=== PATIENT | female | born 1975 | race Caucasian/White ===

== ENCOUNTER 2017-01-09 23:13 | Emergency (ER) | payer BC ==
[2017-01-09] MEDS ORDERED: diphenhydrAMINE 50 MG/ML 1 ML VIAL IVP STA (23:47)
[2017-01-09] MEDS ORDERED: SODIUM CHLORIDE 0.9% 1,000 ML IV STA (23:47)
[2017-01-09] MEDS ORDERED: METOCLOPRAMIDE 5 MG/ML 2 ML VIAL IVP STA (23:47)
--- NOTE | 2017-01-09 23:49 | ED ---
General Adult HPI - General Source: patient, RN notes reviewed Mode of arrival: ambulatory Limitations: no limitations <Bruna Alarcon - Last Filed: 01/10/17 01:30> <Evert Pinzon - Last Filed: 01/10/17 02:04> - General Chief complaint: GI Bleed Stated complaint: migraine w/vomiting Time Seen by Provider: 01/09/17 23:22 - History of Present Illness Initial comments: 41-year-old female presents to the emergency department with a chief nausea vomiting and migraine. Patient states she does have a history of migraines she gets migraines monthly with her cycle. Patient states she got her migraine today and it seemed to worsen. She does not have nausea and she was vomiting today. Patient states she vomited about 20 times around the last few vomits she thought that she saw blood in the vomit. She states it was a dark brown type as well as bright red blood. Patient denies any lightheadedness or dizziness. Patient states that she hasn't had any abdominal pain with this. Patient states since she's been here she has not had any vomiting. The concern was however that they didn't see the blood Migraines so they thought that she should be seen.Patient denies any recent fever, chills, shortness of breath, chest pain, back pain, abdominal pain, numbness or tingling, dysuria or hematuria, constipation or diarrhea, visual changes, or any other current symptoms. (Bruna Alarcon) - Related Data Home Medications Medication Instructions Recorded Confirmed Multivitamins, Thera [Multivitamin] 1 tab PO DAILY 03/11/16 01/09/17 Sertraline [Zoloft] 150 mg PO HS 03/11/16 01/09/17 Cholecalciferol [Vitamin D3] 1,000 unit PO DAILY 01/09/17 01/09/17 Thyroid,Pork [[place] Thyroid] 60 mg PO DAILY 01/09/17 01/09/17 buPROPion [Wellbutrin] 75 mg PO DAILY 01/09/17 01/09/17 Previous Rx's Medication Instructions Recorded Famotidine [Pepcid] 20 mg PO BID #10 tablet 01/10/17 Allergies Allergy/AdvReac Type Severity Reaction Status Date / Time Penicillins AdvReac Rash/Hives Verified 01/09/17 23:43 Sulfa (Sulfonamide AdvReac Rash/Hives Verified 01/09/17 23:43 Antibiotics) Review of Systems ROS Other: All systems not noted in ROS Statement are negative. <Bruna Alarcon - Last Filed: 01/10/17 01:30> ROS Other: All systems not noted in ROS Statement are negative. <Evert Pinzon - Last Filed: 01/10/17 02:04> ROS Statement: Those systems with pertinent positive or pertinent negative responses have been documented in the HPI. Past Medical History Past Medical History: Osteoarthritis (OA), Thyroid Disorder Additional Past Medical History / Comment(s): -induced hypertension. History of Any Multi-Drug Resistant Organisms: None Reported Past Surgical History: Adenoidectomy, Section, Tonsillectomy Additional Past Surgical History / Comment(s): sinus surgery. bunionectomy Past Anesthesia/Blood Transfusion Reactions: No Reported Reaction Past Psychological History: No Psychological Hx Reported Smoking Status: Never smoker Past Alcohol Use History: None Reported Past Drug Use History: None Reported - Past Family History Mother Family Medical History: Cancer <Bruna Alarcon - Last Filed: 01/10/17 01:30> General Exam Limitations: no limitations <Bruna Alarcon - Last Filed: 01/10/17 01:30> <Evert Pinzon - Last Filed: 01/10/17 02:04> - General Exam Comments Initial Comments: General: The patient is awake and alert, in no distress, and does not appear acutely ill. Eye: Pupils are equal, round and reactive to light, extra-ocular movements are intact; there is normal conjunctiva bilaterally. No signs of icterus. Ears, nose, mouth and throat: There are moist mucous membranes. Neck: The neck is supple, there is no tenderness. Cardiovascular: There is a regular rate and rhythm. No murmur, rub or gallop is appreciated. Respiratory: Lungs are clear to auscultation, respirations are non-labored, breath sounds are equal. No wheezes, stridor, rales, or rhonchi. Gastrointestinal: Soft, non-distended, non-tender abdomen without masses or organomegaly noted. There is no rebound or guarding present. No CVA tenderness. Bowel sounds are unremarkable. Back: There is no tenderness to palpation in the midline. There is no obvious deformity. No rashes noted. Musculoskeletal: Normal ROM, no tenderness, There is no pedal edema. There is no calf tenderness or swelling. Sensation intact. Pulses equal bilaterally 2+. Neurological: CN II-XII intact, There are no obvious motor or sensory deficits. Coordination appears grossly intact. Speech is normal. Skin: Skin is warm and dry and no rashes or lesions are noted. Psychiatric: Cooperative, appropriate mood & affect, normal judgment. (Bruna Alarcon) Medical Decision Making - Lab Data Result diagrams: 01/09/17 23:58 01/09/17 23:58 <Bruna Alarcon - Last Filed: 01/10/17 01:30> - Lab Data Result diagrams: 01/09/17 23:58 01/09/17 23:58 <Evert Pinzon - Last Filed: 01/10/17 02:04> - Medical Decision Making 41-year-old female presents emergency Department with a chief complaint of nausea vomiting and headache. At this time patient's vomiting has resolved. Occult was done however it was more most likely rectal bleeding associated with normal stool when observed. At this time we will discharge the patient home. We will start her on Pepcid for home. We did discuss close follow-up. We did discuss return parameters and all the patient's questions. They state Ubaldo they're in agreement plan. They will be discharged. (Bruna Alarcon) 41-year-old female presenting with significant nausea or vomiting. Follow was initially clear, progressed to brown with some blood streaking. History consistent with Shanon-Ford tear. Patient's exam is unremarkable. No epigastric tenderness, abdominal exam is benign. She is overall well- appearing. Vital signs are stable. Hemoglobin is stable. Patient is given anticipatory guidance and will return with worsening symptoms, the development of melena, or repeat vomiting with blood. She started on proton pump inhibitor. (Evert Pinzon) - Lab Data Lab Results 01/09/17 01/09/17 01/09/17 Range/Units 00:00 23:58 23:58 WBC 12.7 H (3.8-10.6) k/uL RBC 4.29 (3.80-5.40) m/uL Hgb 13.1 (11.4-16.0) gm/dL Hct 39.7 (34.0-46.0) % MCV 92.5 (80.0-100.0) fL MCH 30.5 (25.0-35.0) pg MCHC 33.0 (31.0-37.0) g/dL RDW 14.1 (11.5-15.5) % Plt Count 249 (150-450) k/uL Neutrophils % 79 % Lymphocytes % 15 % Monocytes % 3 % Eosinophils % 1 % Basophils % 0 % Neutrophils # 10.0 H (1.3-7.7) k/uL Lymphocytes # 1.9 (1.0-4.8) k/uL Monocytes # 0.4 (0-1.0) k/uL Eosinophils # 0.1 (0-0.7) k/uL Basophils # 0.1 (0-0.2) k/uL PT (9.0-12.0) sec INR (<1.2) APTT (22.0-30.0) sec Sodium 142 (137-145) mmol/L Potassium 4.1 (3.5-5.1) mmol/L Chloride 104 (98-107) mmol/L Carbon Dioxide 24 (22-30) mmol/L Anion Gap 14 mmol/L BUN 13 (7-17) mg/dL Creatinine 0.60 (0.52-1.04) mg/dL Est GFR (MDRD) Af Amer >60 (>60 ml/min/1.73 sqM) Est GFR (MDRD) Non-Af >60 (>60 ml/min/1.73 sqM) Glucose 115 H (74-99) mg/dL Calcium 9.5 (8.4-10.2) mg/dL Total Bilirubin 0.2 (0.2-1.3) mg/dL AST 17 (14-36) U/L ALT 37 (9-52) U/L Alkaline Phosphatase 113 (38-126) U/L Total Protein 7.1 (6.3-8.2) g/dL Albumin 4.3 (3.5-5.0) g/dL Amylase 32 (30-110) U/L Lipase 111 (23-300) U/L Stool Occult Blood (Negative) Blood Type O Positive Blood Type Recheck No Antibody Screen NEGATIVE Spec Expiration Date 01/12/2017 - 229901/09/17 01/10/17 Range/Units 23:58 01:00 WBC (3.8-10.6) k/uL RBC (3.80-5.40) m/uL Hgb (11.4-16.0) gm/dL Hct (34.0-46.0) % MCV (80.0-100.0) fL MCH (25.0-35.0) pg MCHC (31.0-37.0) g/dL RDW (11.5-15.5) % Plt Count (150-450) k/uL Neutrophils % % Lymphocytes % % Monocytes % % Eosinophils % % Basophils % % Neutrophils # (1.3-7.7) k/uL Lymphocytes # (1.0-4.8) k/uL Monocytes # (0-1.0) k/uL Eosinophils # (0-0.7) k/uL Basophils # (0-0.2) k/uL PT 9.7 (9.0-12.0) sec INR 0.9 (<1.2) APTT 25.6 (22.0-30.0) sec Sodium (137-145) mmol/L Potassium (3.5-5.1) mmol/L Chloride (98-107) mmol/L Carbon Dioxide (22-30) mmol/L Anion Gap mmol/L BUN (7-17) mg/dL Creatinine (0.52-1.04) mg/dL Est GFR (MDRD) Af Amer (>60 ml/min/1.73 sqM) Est GFR (MDRD) Non-Af (>60 ml/min/1.73 sqM) Glucose (74-99) mg/dL Calcium (8.4-10.2) mg/dL Total Bilirubin (0.2-1.3) mg/dL AST (14-36) U/L ALT (9-52) U/L Alkaline Phosphatase (38-126) U/L Total Protein (6.3-8.2) g/dL Albumin (3.5-5.0) g/dL Amylase (30-110) U/L Lipase (23-300) U/L Stool Occult Blood Positive H (Negative) Blood Type Blood Type Recheck Antibody Screen Spec Expiration Date Disposition Time of Disposition: 01:31 <Bruna Alarcon - Last Filed: 01/10/17 01:30> <Evert Pinzon - Last Filed: 01/10/17 02:04> Clinical Impression: Headache, Nausea & vomiting Disposition: HOME SELF-CARE Condition: Stable Instructions: Gastrointestinal Bleeding (ED), Acute Headache (ED) Additional Instructions: Please use medication as discussed. Please follow up with family doctor if symptoms have not improved over the next two days. Please return to the emergency room if your symptoms increase or worsen or for any other concerns. Prescriptions: Famotidine [Pepcid] 20 mg PO BID #10 tablet Referrals: Bre Carey MD [Primary Care Provider] - 1-2 days
[2017-01-10 00:10] LABS: Basophils # (A) 0.1 k/uL (0-0.2); Basophils % (A) 0 %; CH 30.9; CHCM 33.6; Eosinophils # (A) 0.1 k/uL (0-0.7); Eosinophils % (A) 1 %; HCT 39.7 % (34.0-46.0); HDW 2.61; HGB 13.1 gm/dL (11.4-16.0); Luc # (Auto) 0.12; Luc % (Auto) 1; Lymphocytes # (A) 1.9 k/uL (1.0-4.8); Lymphocytes % (A) 15 %; MCH 30.5 pg (25.0-35.0); MCV 92.5 fL (80.0-100.0); Mean Platelet Volume 7.6; Monocytes # (A) 0.4 k/uL (0-1.0); Monocytes % (A) 3 %; Neutrophils % (A) 79 %; RBC 4.29 m/uL (3.80-5.40); RDW 14.1 % (11.5-15.5); WBC 12.7 k/uL (3.8-10.6); WBC (Perox) 12.74
[2017-01-10 00:21] LABS: ALT 37 U/L (9-52); AST 17 U/L (14-36); Alkaline Phosphatase 113 U/L (38-126); Amylase 32 U/L (30-110); Anion Gap 14 mmol/L; Blood Urea Nitrogen 13 mg/dL (7-17); Calcium 9.5 mg/dL (8.4-10.2); Carbon Dioxide 24 mmol/L (22-30); Chloride 104 mmol/L (98-107); Glucose 115 mg/dL (74-99); Non-African American GFR(MDRD) >60 (>60 ml/min/1.73 sqM); Potassium 4.1 mmol/L (3.5-5.1); Sodium 142 mmol/L (137-145); Total Bilirubin 0.2 mg/dL (0.2-1.3); Total Protein 7.1 g/dL (6.3-8.2)
[2017-01-10 00:22] LABS: INR 0.9 (<1.2); Partial Thromboplastin Time 25.6 sec (22.0-30.0); Prothrombin Time 9.7 sec (9.0-12.0)
[2017-01-10] MEDS ORDERED: FAMOTIDINE 20 MG/2 ML VIAL IV STA (01:16)
[2017-01-10 01:46] VITALS: BP 112/56; PULSE 68; RESP 16; TEMP 97.5
== END 2017-01-10 02:01 | disposition home or self-care (01) ==
LOC: EC 23:13
DX: R11.2 Nausea with vomiting, unspecified (principal); R51 Headache; K92.2 Gastrointestinal hemorrhage, unspecified; E07.9 Disorder of thyroid, unspecified; M19.90 Unspecified osteoarthritis, unspecified site; Z79.899 Other long term (current) drug therapy; Z88.0 Allergy status to penicillin; Z88.2 Allergy status to sulfonamides
CPT/HCPCS: 36415 ×2; 86900; 86901; 80053; 82150; 83690; 85025; 85610; 85730; 86850; 82272; 96374; 96375 ×2; 96361; 99284; J1200; J2765

== ENCOUNTER → 2017-06-23 | Outpatient (CLI) | payer BC ==
--- NOTE | 2017-06-24 12:31 | MM ---
Reason for exam: screening (asymptomatic). Last mammogram was performed 1 year and 4 months ago. History: Patient had first child at age 37. Family history of breast cancer in maternal aunt at age 65. Took hormonal contraceptives beginning at age 16. Physical Findings: A clinical breast exam by your physician is recommended on an annual basis and results should be correlated with mammographic findings. MG Screening Mammo w CAD Bilateral CC and MLO view(s) were taken. Prior study comparison: February 24, 2016, bilateral MG screening mammo w CAD. September 24, 2013, bilateral MG diagnostic mammo w CAD [facility]. There are scattered fibroglandular densities. No suspicious abnormality. No significant changes when compared with prior studies. ASSESSMENT: Negative, BI-RAD 1 RECOMMENDATION: Routine screening mammogram of both breasts in 1 year.
== END | disposition home or self-care (01) ==
LOC: RADMAMWWP 09:32
PROVIDERS: ATTEND Obstetrics & Gynecology
DX: Z12.31 Encounter for screening mammogram for malignant neoplasm of breast (principal)
CPT/HCPCS: 77067

== ENCOUNTER → 2020-01-30 | Outpatient (CLI) | payer BC ==
--- NOTE | 2020-01-31 10:17 | MM ---
Reason for exam: screening (asymptomatic). Last mammogram was performed 1 year and 2 months ago. History: Patient had first child at age 37. Family history of breast cancer in maternal aunt at age 65. Took hormonal contraceptives beginning at age 16. Physical Findings: A clinical breast exam by your physician is recommended on an annual basis and results should be correlated with mammographic findings. MG Screening Mammo w CAD Bilateral CC and MLO view(s) were taken. Prior study comparison: November 22, 2018, bilateral MG screening mammo w CAD. June 23, 2017, bilateral MG screening mammo w CAD. There are scattered fibroglandular densities. There is no discrete abnormality. No significant changes when compared with prior studies. ASSESSMENT: Negative, BI-RAD 1 RECOMMENDATION: Routine screening mammogram of both breasts in 1 year.
== END | disposition home or self-care (01) ==
LOC: RADMAMWWP 15:31
PROVIDERS: ATTEND Obstetrics & Gynecology
DX: Z12.31 Encounter for screening mammogram for malignant neoplasm of breast (principal); Z80.3 Family history of malignant neoplasm of breast
CPT/HCPCS: 77067

== ENCOUNTER → 2021-01-22 | Outpatient (CLI) | payer BC ==
[2021-01-22 14:58] LABS: Basophils # (A) 0.04 X 10*3/uL (0.00-0.10); Basophils % (A) 0.4 %; Eosinophils # (A) 0.18 X 10*3/uL (0.04-0.35); HCT 41.5 % (37.2-46.3); HGB 12.7 g/dL (12.0-15.0); Lymphocytes # (A) 2.53 X 10*3/uL (0.90-5.00); Lymphocytes % (A) 27.4 %; MCH 28.8 pg (27.0-32.0); MCHC 30.6 g/dL (32.0-37.0); MCV 94.1 fL (80.0-97.0); Mean Platelet Volume 10.3 fL (9.5-12.2); Monocytes # (A) 0.36 X 10*3/uL (0.20-1.00); Monocytes % (A) 3.9 %; Neutrophils # (A) 6.09 X 10*3/uL (1.80-7.70); Platelet Count 265 X 10*3/uL (140-440); RBC 4.41 X 10*6/uL (4.10-5.20); RDW 13.4 % (11.5-14.5); WBC 9.23 X 10*3/uL (4.50-10.00)
[2021-01-22 18:44] LABS: Gliadin AB IgA, Deaminated NEGATIVE (NEGATIVE); Gliadin AB IgA, Unit 0.2 U/mL; Gliadin AB IgG, Deaminated NEGATIVE (NEGATIVE)
== END | disposition home or self-care (01) ==
LOC: LABWHC1 09:39
PROVIDERS: ATTEND Internal Medicine Gastroenterology
DX: R19.4 Change in bowel habit (principal)
CPT/HCPCS: 36415; 83516; 85025

== ENCOUNTER 2021-01-30 09:22 | Day surgery (SDC) | payer BC ==
[2021-01-28 15:57] VITALS: BMI 39.9
[~2021-01-30 09:22] MED LIST: LACTATED RINGERS 1,000 ML IV SCH
[2021-01-30 09:48] VITALS: TEMP 97.2
[2021-01-30] MEDS ORDERED: PROPOFOL 10 MG/ML 20 ML VIAL IV ONE (10:22)
--- NOTE | 2021-01-30 10:33 | P.PCN ---
Date of Procedure: 01/30/21 Implants: BRIEF HISTORY: Patient is a 45-year-old pleasant white female scheduled for an elective colonoscopy as a part of evaluation of change in bowel habits. PROCEDURE PERFORMED: Colonoscopy. PREOPERATIVE DIAGNOSIS: Change in bowel habits . IV sedation per Anesthesia. PROCEDURE: After informed consent was obtained, the patient, was brought into the endoscopy unit. IV sedation was administered by Anesthesia under continuous monitoring. Digital rectal examination was normal. Initially the Olympus CF-160 flexible video colonoscope was then inserted in the rectum, gradually advanced into the cecum without any difficulty. Careful examination was performed as the scope was gradually being withdrawn. Ileocecal valve and the appendiceal orifice were visualized and appeared normal. Prep was excellent. Mucosa of the cecum, ascending colon, transverse colon, descending colon, sigmoid colon, and rectum appeared normal. Her sigmoid diverticulosis. Retroflexion was performed in the rectum and no lesions were seen. The patient tolerated the procedure well. IMPRESSION: Normal-appearing colon from rectum to cecum no evidence of colorectal neoplasia . scattered sigmoid diverticulosis. RECOMMENDATIONS: Findings of this examination were discussed with the patient as well as a family. She was advised to have a repeat screening colonoscopy in 10 years. The meantime she will continue with a high-fiber diet and take fiber supplements as needed. .
[2021-01-30 10:58] VITALS: BP 122/78; PULSE 75; RESP 16
== END 2021-01-30 11:20 | disposition home or self-care (01) ==
LOC: ORWHC2ENDO 09:22
PROVIDERS: ATTEND Internal Medicine Gastroenterology
DX: K57.30 Diverticulosis of large intestine without perforation or abscess without bleeding (principal); Z88.0 Allergy status to penicillin; Z88.2 Allergy status to sulfonamides; F39 Unspecified mood [affective] disorder; E07.9 Disorder of thyroid, unspecified; Z79.890 Hormone replacement therapy; Z79.899 Other long term (current) drug therapy
CPT/HCPCS: 45378; 81025; J2704

== ENCOUNTER → 2021-03-17 | Outpatient (CLI) | payer BC ==
--- NOTE | 2021-03-18 10:33 | MM ---
Reason for exam: screening (asymptomatic). Last mammogram was performed 1 year and 2 months ago. History: Patient had first child at age 37. Family history of breast cancer in maternal aunt at age 65. Took hormonal contraceptives beginning at age 16. Physical Findings: A clinical breast exam by your physician is recommended on an annual basis and results should be correlated with mammographic findings. MG Screening Mammo w CAD Bilateral CC and MLO view(s) were taken. Prior study comparison: January 30, 2020, bilateral MG screening mammo w CAD. November 22, 2018, bilateral MG screening mammo w CAD. There are scattered fibroglandular densities. There is no discrete abnormality. No significant changes when compared with prior studies. ASSESSMENT: Negative, BI-RAD 1 RECOMMENDATION: Routine screening mammogram of both breasts in 1 year.
== END | disposition home or self-care (01) ==
LOC: RADMAMWWP 07:54
PROVIDERS: ATTEND Family Medicine
DX: Z12.31 Encounter for screening mammogram for malignant neoplasm of breast (principal); Z80.3 Family history of malignant neoplasm of breast
CPT/HCPCS: 77067

== ENCOUNTER 2022-08-23 16:45 | Emergency (ER) | payer OTHER, BC ==
[2022-08-23 16:55] VITALS: RESP 20; TEMP 98.1
[2022-08-23] MEDS ORDERED: LIDOCAINE 5% PATCH TOPICAL STA (17:10)
--- NOTE | 2022-08-23 17:15 | ED ---
Fall HPI - General Chief Complaint: Fall Stated Complaint: Fall/neck injury Time Seen by Provider: 08/23/22 17:01 Source: patient Mode of arrival: ambulatory - History of Present Illness Initial Comments: Patient is 47-year-old female who presents to the emergency department for neck and back pain. Patient states a child pulled a rolling chair while she was sitting on it causing patient to slide down the chair and fall onto her bottom in front of the chair. Patient landed in sitting position. Patient states her back and neck hit the chair during the fall causing pain. She did not hit her head or lose consciousness. She reports pain from the back of her neck down to her tailbone. She does not have any pain with neck movement. Patient has history of left sciatica reports no change in her symptoms. No saddle anesthesia. No leg weakness. No headache, nausea, vomiting - Related Data Home Medications Medication Instructions Recorded Confirmed Multivitamins, Thera [Multivitamin] 1 tab PO DAILY 03/11/16 01/28/21 Sertraline [Zoloft] 200 mg PO HS 03/11/16 01/30/21 Cholecalciferol [Vitamin D3] 250 mcg PO DAILY 01/09/17 01/28/21 buPROPion [Wellbutrin] 150 mg PO QAM 01/09/17 01/30/21 Pyridoxine [Vitamin B-6] 50 mg PO DAILY 01/28/21 01/28/21 Thyroid,Pork [Infrastructure Manager Thyroid] 60 mg PO QAM 01/28/21 01/30/21 methocarbamoL [Robaxin] 500 - 1,000 mg PO QID PRN 01/28/21 01/30/21 Previous Rx's Medication Instructions Recorded Cyclobenzaprine [Flexeril] 10 mg PO TID PRN #15 tab 08/23/22 Ibuprofen [Motrin] 800 mg PO Q8HR PRN #30 tab 08/23/22 Lidocaine 5% Patch [Lidoderm 5% 1 patch TOPICAL DAILY PRN #7 patch 08/23/22 Patch] Allergies Allergy/AdvReac Type Severity Reaction Status Date / Time Penicillins AdvReac Rash/Hives Verified 08/23/22 16:55 Sulfa (Sulfonamide AdvReac Rash/Hives Verified 08/23/22 16:55 Antibiotics) Review of Systems ROS Statement: Those systems with pertinent positive or pertinent negative responses have been documented in the HPI. ROS Other: All systems not noted in ROS Statement are negative. Past Medical History Past Medical History: Osteoarthritis (OA), Thyroid Disorder Additional Past Medical History / Comment(s): -induced hypertension. History of Any Multi-Drug Resistant Organisms: None Reported Past Surgical History: Adenoidectomy, Section, Tonsillectomy Additional Past Surgical History / Comment(s): sinus surgery. bunionectomy Past Anesthesia/Blood Transfusion Reactions: No Reported Reaction Past Psychological History: No Psychological Hx Reported Smoking Status: Never smoker Past Alcohol Use History: None Reported Past Drug Use History: None Reported - Past Family History Mother Family Medical History: Cancer General Exam Limitations: no limitations General appearance: alert, in no apparent distress Head exam: Present: atraumatic, normocephalic, normal inspection Respiratory exam: Present: normal lung sounds bilaterally. Absent: respiratory distress, wheezes, rales, rhonchi, stridor Cardiovascular Exam: Present: regular rate, normal rhythm, normal heart sounds. Absent: systolic murmur, diastolic murmur, rubs, gallop, clicks Back exam: Present: normal inspection, full ROM, paraspinal tenderness (cervical ), vertebral tenderness (thoracic mild ). Absent: muscle spasm Neurological exam: Present: alert, oriented X3, CN II-XII intact Psychiatric exam: Present: normal affect, normal mood Skin exam: Present: warm, dry, intact, normal color. Absent: rash Course Vital Signs 08/23/22 08/23/22 16:51 18:39 Temperature 98.1 F Pulse Rate 86 78 Respiratory 20 Rate Blood Pressure 148/86 118/79 O2 Sat by Pulse 98 99 Oximetry Medical Decision Making - Medical Decision Making Was pt. sent in by a medical professional or institution (, PA, HAUL TRUCK DRIVER, urgent care, hospital, or shelter...) When possible be specific @ -[No] Did you speak to anyone other than the patient for history (EMS, parent, family, police, friend...)? What history was obtained from this source @ -[No] Did you review nursing and triage notes (agree or disagree)? Why? @ -[I reviewed and agree with nursing and triage notes] Were old charts reviewed (outside hosp., previous admission, EMS record, old EKG, old radiological studies, urgent care reports/EKG's, shelter records)? Report findings @ -[No old charts were reviewed] Differential Diagnosis (chest pain, altered mental status, abdominal pain women, abdominal pain men, vaginal bleeding, weakness, fever, dyspnea, syncope, headache, dizziness, GI bleed, back pain, seizure, CVA, palpatations, mental health)? @ -Differential Back Pain: Strain, zoster, cauda equina syndrome, epidural abscess, vertebral osteomyelitis, discitis, fracture, subluxation, disc herniation, DJD, spinal stenosis, dissection, AAA, pancreatitis, peptic ulcer disease, pyelonephritis, kidney stone, this is not meant to be an all-inclusive list. EKG interpreted by me (3pts min.). @ -[As above] X-rays interpreted by me (1pt min.). @ -Yes, cervical, thoracic, lumbosacral x-rays negative for acute process. CT interpreted by me (1pt min.). @ -[None done] U/S interpreted by me (1pt. min.). @ -[None done] What testing was considered but not performed or refused? (CT, X-rays, U/S, labs)? Why? @ -[None] What meds were considered but not given or refused? Why? @ -[None] Did you discuss the management of the patient with other professionals (professionals i.e. , PA, HAUL TRUCK DRIVER, lab, RT, psych nurse, social sciences lecturer, career development counselor, teacher, conservation enforcement officer, pillowcase maker)? Give summary @ -[No] Was smoking cessation discussed for >3mins.? @ -[No] Was critical care preformed (if so, how long)? @ -[No] Were there social determinants of health that impacted care today? How? (Homelessness, low income, unemployed, alcoholism, drug addiction, transportation, low edu. Level, literacy, decrease access to med. care, residential, rehab)? @ -[No] Was there de-escalation of care discussed even if they declined (Discuss DNR or withdrawal of care, Hospice)? DNR status @ -[No] What co-morbidities impacted this encounter? (DM, HTN, Smoking, COPD, CAD, Cancer, CVA, ARF, Chemo, Hep., AIDS, mental health diagnosis, sleep apnea, morbid obesity)? @ -[None] Was patient admitted / discharged? Hospital course, mention meds given and route, prescriptions, significant lab abnormalities, going to OR and other pertinent info. @ -Patient presenting with back pain after fall. Patient well-appearing she has mild pain. X-ray negative for acute process. No symptoms or signs of cauda equina. Patient treated in the emergency department with improvement. She'll be discharged with symptomatic management. Undiagnosed new problem with uncertain prognosis? @ -[No] Drug Therapy requiring intensive monitoring for toxicity (Heparin, Nitro, Insulin, Cardizem)? @ -[No] Were any procedures done? @ -[No] Diagnosis/symptom? @ -Fall, back pain, neck pain Acute, or Chronic, or Acute on Chronic? @ -Acute Uncomplicated (without systemic symptoms) or Complicated (systemic symptoms)? @ -Uncomplicated Side effects of treatment? @ -[No] Exacerbation, Progression, or Severe Exacerbation? @ -[No] Poses a threat to life or bodily function? How? (Chest pain, [place], NH, pneumonia, PE, COPD, DKA, ARF, appy, cholecystitis, CVA, Diverticulitis, Homicidal, Suicidal, threat to staff... and all critical care pts) @ -[No] Case discussed in detail with my attending Dr. Frias Disposition Clinical Impression: Fall, Back pain, Neck pain Disposition: HOME SELF-CARE Condition: Good Instructions (If sedation given, give patient instructions): Back Pain (ED), Fall Prevention (ED) Additional Instructions: Take medication as directed. Do not drink alcohol or operate machinery while taking Flexeril as it can make you sleepy. Follow-up with primary care provider in one to 2 days. Return to the emergency department if you experience new, concerning, or worsening symptoms Prescriptions: Cyclobenzaprine [Flexeril] 10 mg PO TID PRN #15 tab PRN Reason: Muscle Spasm Lidocaine 5% Patch [Lidoderm 5% Patch] 1 patch TOPICAL DAILY PRN #7 patch PRN Reason: Pain Ibuprofen [Motrin] 800 mg PO Q8HR PRN #30 tab PRN Reason: Pain Is patient prescribed a controlled substance at d/c from ED?: No Referrals: Bre Carey MD [Primary Care Provider] - 1-2 days
--- NOTE | 2022-08-23 18:28 | XR ---
EXAMINATION TYPE: XR cervical spine comp DATE OF EXAM: 08/23/2022 6:09 PM INDICATION: Patient age:Female; 47 years old; Reason for study: fall; COMPARISON: None TECHNIQUE: The cervical spine was imaged in frontal, lateral, odontoid and bilateral oblique. FINDINGS: The osseous structures show normal alignment without evidence of an acute fracture. There are osteoph ytes noted throughout the cervical spine on the anterior and lateral aspects of the vertebral bodies. The intervertebral disk spaces are narrowed at multiple levels Pedicles are intact. Soft tissues ar e within normal limits. The odontoid appears intact. IMPRESSION: 1. No fracture or dislocation. 2. Mild degenerative disc disease changes of the cervical spine.
--- NOTE | 2022-08-23 18:29 | XR ---
EXAMINATION TYPE: XR thoracic spine complete DATE OF EXAM: 08/23/2022 6:09 PM INDICATION: Patient age:Female; 47 years old; Reason for study: FALL; COMPARISON: None TECHNIQUE: 2 views of the thoracic spine in Frontal and lateral projections. FINDINGS: Mild scoliosis changes with S-shaped. No evidence of acute fracture. There is scattered multilevel disk space narrowing without loss of ve rtebral body height. There is normal alignment of the thoracic vertebral bodies. Scattered osteophyte formation along the anterior and lateral aspects of the vertebral bodies. Neural foramen are patent given limitations of this exam. Spinal canal appears patent. IMPRESSION: No acute osseous pathology. Mild S-shaped scoliosis. Mild multilevel disc degeneration changes.
--- NOTE | 2022-08-23 18:30 | XR ---
EXAMINATION TYPE: XR lumbosacral spine min 4V DATE OF EXAM: 08/23/2022 6:09 PM INDICATION: Patient age:Female; 47 years old; Reason for study: fall; COMPARISON: None TECHNIQUE: Frontal, lateral , bilateral oblique and coned in L5-S1 lateral views of the spine. FINDINGS: No evidence of any acute osseous pathology. No evidence of loss of vertebral body height i s seen. There is grade 2 anterolisthesis of L4 and L5 and grade 1 of L3 on L4 alignment of the lumbar vertebral bodies. Mild scattered disc space narrowing. Multilevel marginal osteophyte formation thro ughout the visualized spine. There is facet joint arthropathy throughout the spine. Scattered at leas t mild neural foraminal stenosis. IMPRESSION: 1. No acute fracture. 2. Mild multilevel disc degeneration. 3. Grade 2 anterolisthesis of L4 and L5 and grade 1 of L3 on L4 consider further evaluation with MRI.
[2022-08-23 18:41] VITALS: BP 118/79; PULSE 78
[2022-08-23] MEDS ORDERED: KETOROLAC 15 MG/ML 1 ML VIAL IM STA (19:01)
== END 2022-08-23 19:11 | disposition home or self-care (01) ==
LOC: EC 16:45
DX: M54.2 Cervicalgia (principal); M54.9 Dorsalgia, unspecified; M19.90 Unspecified osteoarthritis, unspecified site; E07.9 Disorder of thyroid, unspecified; Z88.0 Allergy status to penicillin; Z88.2 Allergy status to sulfonamides; Z79.890 Hormone replacement therapy; Z79.899 Other long term (current) drug therapy; W18.30XA Fall on same level, unspecified, initial encounter; Y99.0 Civilian activity done for income or pay
CPT/HCPCS: 72072; 72050; 72110; 99284; 96372; J1885

== ENCOUNTER → 2022-09-03 | Outpatient (CLI) | payer BC ==
--- NOTE | 2022-09-06 08:14 | MM ---
Reason for Exam: Screening (asymptomatic). Last mammogram was performed 1 year(s) and 6 month(s) ago. Patient History: Menarche at age 8. First Full-Term at age 37. Late child-bearing (after 30). Hormonal Contraceptives, from age 16 until age 28. Maternal aunt had breast cancer, age 65. Risk Values: Rosalie 5 year model risk: 1.4%. NCI Lifetime model risk: 13.4%. Prior Study Comparison: 11/22/2018 Bilateral Screening Mammogram, [facility]. 01/30/2020 Bilateral Screening Mammogram, [facility]. 03/17/2021 Bilateral Screening Mammogram, [facility]. Tissue Density: The breast tissue is heterogeneously dense. This may lower the sensitivity of mammography. Findings: Analyzed By CAD. There is no suspicious group of microcalcifications or new suspicious mass in either breast. Overall Assessment: Negative, BI-RAD 1 Management: Screening Mammogram of both breasts in 1 year. A clinical breast exam by your physician is recommended on an annual basis and results should be correlated with mammographic findings. Electronically signed and approved by: Lázaro Clark M.D. Radiologis
== END | disposition home or self-care (01) ==
LOC: RADMAMWWP 14:25
PROVIDERS: ATTEND Family Medicine
DX: Z12.31 Encounter for screening mammogram for malignant neoplasm of breast (principal); Z80.3 Family history of malignant neoplasm of breast
CPT/HCPCS: 77067

== ENCOUNTER → 2023-02-25 | Outpatient (CLI) | payer BC ==
--- NOTE | 2023-02-25 15:10 | MR ---
EXAMINATION TYPE: MR lumbar spine wo con DATE OF EXAM: 02/25/2023 7:10 AM CLINICAL INDICATION:Female, 47 years old with history of M48.061 SPINAL STENOSIS, LUMBAR REGION WITHO UT CAM; PHH, Lower back pain, LLE radiculopathy. COMPARISON: None TECHNIQUE: Multi planar, multi sequence imaging was performed utilizing: T1-weighted, T2-weighted, a nd turbo inversion recovery imaging of the lumbar spine. IV Contrast: cc . (None if empty) FINDINGS: Alignment: The lumbar vertebral bodies have preserved heights with grade 2 anterolisthesis of L4 on L 5. Cord: The conus medullaris and the distal spinal cord appear unremarkable with regards to their signa l intensity and morphology. Bones/Discs: Minimal disc degeneration changes worse at L5-S1 with disc space narrowing, and osteophy carolina are somewhat diffuse low signal within the vertebral bodies on T1 weighted imaging. Multilevel di sc desiccation is present. Grade 2 anterolisthesis of L4 on L5 with some stress edema on inversion re covery sequences within the left pedicle. T12-L1: No evidence of significant spinal canal stenosis or neural foraminal stenosis. L1-L2: No evidence of significant spinal canal stenosis or neural foraminal stenosis. L2-L3: No evidence of significant spinal canal stenosis or neural foraminal stenosis. L3-L4: Disc bulge and facet joint arthropathy result in mild to moderate spinal canal and moderate bi lateral bilateral neural foraminal stenosis. L4-L5: Disc uncovering from grade 2 anterolisthesis and facet joint arthropathy with moderate to manjinder re spinal canal stenosis and moderate to severe bilateral neural foraminal stenosis. L5-S1: Disc bulge and facet joint arthropathy result in mild spinal canal and mild bilateral neural f oraminal stenosis. No significant spinal canal or neural foraminal stenosis in the remainder of the visualized levels. Other findings: None. IMPRESSION: 1. No definitive evidence of disc herniation. 2. Grade 2 anterolisthesis of L4 on L5 resulting in moderate to severe spinal canal stenosis and mod erate to severe neural foraminal stenosis. 3. Diffuse red marrow conversion can be seen in the setting of tobacco abuse, anemia, or myeloprolif erative disorder.
== END | disposition home or self-care (01) ==
LOC: RADMRIMAIN 06:30
PROVIDERS: ATTEND Orthopaedic Surgery
DX: M48.061 Spinal stenosis, lumbar region without neurogenic claudication (principal); M43.16 Spondylolisthesis, lumbar region; M99.73 Connective tissue and disc stenosis of intervertebral foramina of lumbar region; M54.16 Radiculopathy, lumbar region
CPT/HCPCS: 72148

== ENCOUNTER → 2024-05-11 | Outpatient (CLI) | payer BC ==
[2024-05-11 13:29] LABS: INR 0.9 (<1.2); Partial Thromboplastin Time 26.9 sec (22.0-30.0)
[2024-05-11 16:18] LABS: ALT 18 U/L (8-44); AST 21 U/L (13-35); Albumin 4.3 g/dL (3.8-4.9); Albumin/Globulin Ratio 1.48 Ratio (1.60-3.17); Alkaline Phosphatase 118 U/L (41-126); BUN/Creat Ratio 19.67 Ratio (12.00-20.00); Blood Urea Nitrogen 11.8 mg/dL (9.0-27.0); Calcium 9.4 mg/dL (8.7-10.3); Chloride 103 mmol/L (96-109); Globulin 2.9 g/dL (1.6-3.3); Glucose 77 mg/dL (70-110); HCT 38.3 % (37.2-46.3); MCH 27.7 pg (27.0-32.0); MCHC 31.3 g/dL (32.0-37.0); MCV 88.5 FL (80.0-97.0); Mean Platelet Volume 9.7 FL (9.5-12.2); NRBC Per 100 WBC 0 X 10*3/uL (0.00-0.01); Platelet Count 274 X 10*3/uL (140-440); Potassium 4.3 mmol/L (3.5-5.5); RBC 4.33 X 10*6/uL (4.10-5.20); RDW 13.7 % (11.5-14.5); Sodium 140 mmol/L (135-145); Total Bilirubin <0.2 mg/dL (0.3-1.2); Total Protein 7.2 g/dL (6.2-8.2); WBC 8.35 X 10*3/uL (4.50-10.00)
== END | disposition home or self-care (01) ==
LOC: LABPAT 12:17
PROVIDERS: ATTEND Orthopaedic Surgery
DX: Z01.818 Encounter for other preprocedural examination (principal); Z22.322 Carrier or suspected carrier of Methicillin resistant Staphylococcus aureus; E11.9 Type 2 diabetes mellitus without complications; M16.12 Unilateral primary osteoarthritis, left hip
CPT/HCPCS: 80053; 83036; 85027; 85610; 85730; 86850; 86900; 86901; 87070; 93005

== ENCOUNTER 2024-05-21 11:06 | Day surgery (SDC) | payer BC ==
[~2024-05-21 11:06] MED LIST changes: +HYDROmorphone 0.5 MG/0.5 ML SYRINGE IVP PRN; -LACTATED RINGERS 1,000 ML IV SCH; +LIDOCAINE 1% (10MG/ML) FOR IV START INTRADERMA PRN; +ONDANSETRON 4 MG/2 ML VIAL IVP PRN; +TRANEXAMIC 1,000 MG/100ML-NACL 1,000 MG in SALINE 1 100ML.BAG IV PRN; +TRANEXAMIC 1,000 MG/100ML-NACL 1,000 MG in SALINE 1 100ML.BAG IVPB PRN
[2024-05-21] MEDS: IV FLUID CONTINUATION 1,000 ML IV ONE (12:11)
[2024-05-21] MEDS: LACTATED RINGERS 1,000 ML IV SCH (12:11)
[2024-05-21] MEDS: ONDANSETRON 4 MG/2 ML VIAL IVP ONE (12:14)
[2024-05-21] MEDS: FAMOTIDINE 20 MG/2 ML VIAL IVP PRN (12:15)
[2024-05-21] MEDS: KETOROLAC 15 MG/ML 1 ML VIAL IVP PRN (12:15)
[2024-05-21] MEDS: DEXAMETHASONE SOD PHOSPHATE 10 MG/ML 1 ML VIAL IV PRN (12:16)
[2024-05-21] MEDS: DOCUSATE 100 MG CAP PO PRN (12:16)
[2024-05-21] MEDS: ACETAMINOPHEN TAB 500 MG TAB PO PRN (12:16)
[2024-05-21] MEDS: oxyCODONE ER 10 MG TAB.ER.12H PO PRN (12:17)
[2024-05-21] MEDS: fentaNYL (PF) 50 MCG/ML 2 ML AMP IVP PRN (12:33)
[2024-05-21] MEDS: MIDAZOLAM 2 MG/2 ML VIAL IV PRN (12:33)
[2024-05-21] MEDS ORDERED: MIDAZOLAM 2 MG/2 ML VIAL ONE (12:45)
[2024-05-21] MEDS ORDERED: TRANEXAMIC 1,000 MG/100ML-NACL PREMIX BAG ONE (12:45)
[2024-05-21] MEDS ORDERED: SUCCINYLCHOLINE CHLORIDE 200 MG/10 ML VIAL IV ONE (12:45)
[2024-05-21] MEDS ORDERED: GLYCOPYRROLATE 0.2 MG/ML 2 ML VIAL ONE (12:45)
[2024-05-21] MEDS ORDERED: ROPIVACAINE 5 MG/ML 30 ML VIAL ONE (12:45)
[2024-05-21] MEDS ORDERED: HYDROmorphone (PF) 1 MG/ML ONE (12:45)
[2024-05-21] MEDS ORDERED: LIDOCAINE 1% INJ 10MG/ML (20 ML MDV) ONE (12:45)
[2024-05-21] MEDS ORDERED: DEXAMETHASONE SOD PHOSPHATE 4 MG/ML 1 ML VIAL ONE (12:45)
[2024-05-21] MEDS ORDERED: fentaNYL (PF) 50 MCG/ML 2 ML AMP ONE (12:45)
[2024-05-21] MEDS ORDERED: PROPOFOL 10 MG/ML 20 ML VIAL IV ONE (12:45)
[2024-05-21] MEDS ORDERED: ROCURONIUM 10 MG/ML (5 ML VIAL) IV ONE (12:45)
[2024-05-21] MEDS ORDERED: NEOSTIGMINE 1 MG/ML 10 ML VIAL ONE (12:45)
[2024-05-21] MEDS ORDERED: SODIUM CHLORIDE 0.9% (PF) 10 ML VIAL ONE (12:45)
[2024-05-21] MEDS: ROPIVACAINE/EPI/CLONIDINE/KET 50 ML SYRINGE MISCELLANE PRN (13:26)
--- NOTE | 2024-05-21 13:33 | P.ANPRN ---
Procedure Note - Anesthesia - Nerve Block Performed Left Gamaliel Single Time Out Performed: Yes Date of Procedure: 05/21/24 Procedure Start Time: 12:32 Procedure Stop Time: 12:40 Location of Patient: PreOp Indication: Acute Post-Operative Pain, Requested by Surgeon Sedation Type: Sedate with meaningful contact maintained Preparation: Sterile Prep Position: Supine Needle Types: Pajunk Needle Gauge: 21 Ultrasound used to visualize needle placement: Yes Ultrasound used to observe medication spread: Yes Injectate: 0.5% Ropivacaine (see comment for volume) (20 mL+ 10 mL of normal saline +4 mg of dexamethasone) Blood Aspirated: No Pain Paresthesia on Injection Noted: No Resistance on Injection: Normal Image Stored and Saved: Yes Events: Uneventful and Well Tolerated
[2024-05-21] MEDS: LACTATED RINGERS 1,000 ML IV ONE (14:35)
--- NOTE | 2024-05-21 14:59 | P.OP ---
Date of Procedure: 05/21/24 Preoperative Diagnosis: 1. Severe Left hip osteoarthritis 2. Prior Lumbar spine fusion 3. BMI 40 Postoperative Diagnosis: Same Procedure(s) Performed: Left direct anterior total hip arthroplasty Implants: 1. [place] Trident II Acetabular Cup, Size #50 2. [place] Insignia Size #1 Femoral Stem, High Offset 3. Dual Mobility OD 38 mm, ID 28 mm, +0 mm neck Anesthesia: JJ, regional Surgeon: Darvin Ashley Wool Tamper #1: Bryce Forman Estimated Blood Loss (ml): 400 IV fluids (ml): 800 Pathology: none sent Condition: stable Disposition: PACU Indications for Procedure: the patient is a very pleasant 49-year-old female who presented to my office with severe and incapacitating left hip pain. She previously underwent a lumbar spine fusion and had continued pain. Her x-rays showed severe hypertrophic arthritis. Her exam and presenting complaints were consistent with arthritis. I recommended proceeding with a total hip replacement. I had a long discussion with the patient in the office on the potential risks and complications of an elective total hip replacement through a direct anterior approach. Risks discussed include, but are certainly not limited to, risks from anesthesia, superficial infection requiring local wound care or antibiotics, deep ed-prosthetic joint infection and the treatment required to eradicate infection, intraoperative fracture, postoperative periprosthetic fracture, damage to local blood vessels or nerves particularly the lateral femoral cutaneous nerve, delayed wound healing requiring local wound care or possibly surgical debridement, hip dislocation, leg length discrepancy, soft tissue irritation around the total hip implant such as iliopsoas tendinitis or trochanteric bursitis, wear and osteolysis from the implants, squeaking or audible noises, groin pain, thigh pain, heterotopic ossification, stiffness, aseptic loosening of the implants, dissatisfaction with surgical outcome, need for revision surgery, DVT, PE, swelling of the operative extremity, acute coronary event, stroke, failure to thrive, and possibly loss of life or limb. The patient understands that while these are the most common complications after an elective hip replacement there are certainly other less common complications possible. They were given ample time to ask questions regarding the potential complications of a hip replacement. Following our discussion the patient provided their verbal and written consent to go forward with an elective total hip replacement. Operative Findings: Severe hip arthritis Description of Procedure: The patient was identified in the preoperative holding area and the correct hip was marked with my initials. I reviewed the procedure and consent with the patient. All of their questions were answered. The patient was then brought back into the operating room by anesthesia. While on the [facility] anesthesia was administered by the anesthesia team. Preoperative antibiotics and tranexamic acid were also given. After the patient was under anesthesia I examined their ankles to determine their preoperative leg length discrepancy. The skin over the anterior aspect of the hip was shaved to remove hair over the site of planned incision. Both feet and ankles were padded with webril and boots for the [place] were applied. The patient was then carefully transferred onto the [place] table. A perineal post was immediately placed. The arms were placed on arm holders and were well-padded. Both boots were secured to the spars on the [place] table. The patient was positioned so that the pelvis was centered over the post. Nonsterile drapes were applied. A timeout was performed identifying the correct patient, operative extremity, and procedure. At this point fluoroscopy was brought in to take preoperative images of the pelvis and operative hip. Using the standing AP pelvis from the office as a template, a comparable image was obtained with fluoroscopy. A metallic bar was used to create a bi-ischial line for use as a reference to leg length adjustments during the procedure. Global offset was also measured on both the operative and nonoperative leg. Fluoroscopy was then brought out and a pre-scrub using a chlorhexidine scrub brush was performed. The operative limb was then prepped and draped in the standard sterile fashion. An anterior longitudinal incision was made lateral and distal to the ASIS. The skin and subcutaneous tissues were incised sharply. The underlying tensor fascia was identified and incised in its midportion. The fascia was dissected free from the underlying muscle and the muscle belly was retracted. A blunt tipped cobra retractor was placed over the superior neck under the muscle fibers of the gluteus minimus. The deep enveloping fascia of the tensor was incised. The anterior leash of vessels were then identified and cauterized. The fascia between the rectus and the capsule was then incised and the pre-capsular fat was excised. A second Cobra was placed inferior to the neck. The interval between the rectus and iliocapsularis and the hip capsule was developed and a retractor was placed carefully over the anterior rim of the acetabulum. A T-shaped anterior capsulotomy was performed. The superior capsular leaflet was left in place in the inferior capsular flap was excised. The Cobra retractors were placed intracapsularly. We then made a femoral neck osteotomy according to preoperative and intraoperative templating and confirmed the level of the osteotomy using fluoroscopic imaging. The femoral head was removed, passed off to the back table, and sized. The superior capsular flap was excised. Retractors were placed circumferentially exposing the acetabulum. We then circumferentially debrided the acetabulum free of labrum and osteophytes. The pulvinar was removed to fully visualize the cotyloid fossa. We then sequentially reamed to achieve peripheral fit and excellent bleeding subchondral bone. The socket was thoroughly irrigated. The acetabular component was impacted into the appropriate position using fluoroscopy to guide version, inclination, and depth of insertion taking care to have a comparable image of the AP pelvis to the standing image taken in the office. An excellent press-fit was achieved and final position was confirmed using fluoroscopy. The press fit was augmented with a bony cancellus dome screw. The liner was then impacted into the socket. Attention was then turned to the femur. The remnant dorsal lateral capsule was excised. The short external rotators were visible and protected. A bone hook was used to confirm appropriate translation of the trochanter away from the acetabulum. The leg was then extended and adducted and the bone hook was used to elevate the femur for broaching. A box osteotome and blunt tipped canal sound was then utilized to gain access to the femoral canal. We then sequentially broached the femur in appropriate anteversion until excellent torsional stability was achieved. The neck cut was brought flush to the trial broach with a calcar planar. A trial neck and head were then placed onto the broach and the hip was atraumatically reduced under direct visualization. External rotation to 90 was performed to assess stability. Fluoroscopy was brought in. An AP and lateral fluoroscopic image of the proximal femur was obt ained to assess position and fill of the trial broach. An AP of the pelvis was then obtained and matched to the preoperative image taken. A bi-ischial bar was then placed and measurements were taken to assess changes in length and offset. The hip was then carefully dislocated, the proximal femur was exposed, and the trial implants were removed. The wound and proximal femur was thoroughly irriga guillermo using sterile saline and pulsatile lavage. The final femoral implant was dispensed and gently tapped into place generating an excellent press-fit. The trunnion was cleansed and the final head was tapped into place to engage the [place] taper. The acetabulum was irrigated and visualized to be free of debris. The hip was carefully reduced. Stability was checked clinically with external rotation to 90 and there was no evidence of instability. Final fluoroscopic images were taken. The wound was then thoroughly irrigated and soaked with a dilute Betadine rinse for 3 minutes. 3 L of sterile saline was irrigated through the wound using pulsatile lavage. Local anesthetic cocktail was injected into the soft tissues around the surgical field. The wound was then closed in layers. A sterile dressing was placed over the surgical incision. The drapes were taken down and the patient was carefully transferred off of the [place] table. Following removal of the boots the leg lengths felt acceptable. The patient was then taken to recovery room having tolerated the procedure well. Bryce Forman PA-C was required as a skilled orthotics prosthetics assistant due to the complexity of surgery for patient positioning, draping, exposure, retraction, closure of wound and application of dressing. PLAN: The patient can weight-bear as tolerated on the operative extremity. DVT prophylaxis with aspirin 81 mg twice a day based on preoperative risk stratification. Physical therapy for gait training. Leave surgical dressing in place. Internal medicine for perioperative medical management.
[2024-05-21] MEDS ORDERED: HYDROmorphone 0.5 MG/0.5 ML SYRINGE IVP PRN (15:24)
[2024-05-21] MEDS ORDERED: HYDROcodone/APAP 5-325MG 1 EACH TAB PO PRN (15:24)
[2024-05-21] MEDS ORDERED: ACETAMINOPHEN TAB 325 MG TAB PO PRN (15:24)
[2024-05-21] MEDS ORDERED: NALOXONE 0.4 MG/ML 1 ML VIAL IV PRN (15:24)
[2024-05-21] MEDS ORDERED: MAGNESIUM HYDROXIDE 2,400 MG/30 ML CUP PO PRN (15:24)
[2024-05-21] MEDS ORDERED: ONDANSETRON 4 MG TAB PO PRN (15:29)
--- NOTE | 2024-05-21 15:35 | XR ---
Fluoroscopy INDICATION: Pain FINDINGS: Fluoroscopy time: 56 seconds. Total dose area product (DAP) in uGy*m?, mGy*cm? (or similar): 3.9821 Images obtained: 8. Images document the placement of a left hip prosthesis. IMPRESSION: 1. Documentation of fluoroscopy. [facility], , 05/21/2024 3:33 PM
--- NOTE | 2024-05-21 16:01 | FL ---
Fluoroscopy INDICATION: Pain FINDINGS: Fluoroscopy time: 56 seconds. Total dose area product (DAP) in uGy*m?, mGy*cm? (or similar): 3.92 1 Images obtained: 0. IMPRESSION: 1. Documentation of fluoroscopy. [facility], , 05/21/2024 3:59 PM
[2024-05-21] MEDS ORDERED: DICYCLOMINE 10 MG CAP PO PRN (17:18)
[2024-05-21] MEDS: DEXAMETHASONE SOD PHOSPHATE 4 MG/ML 1 ML VIAL IV ONE (18:21)
[2024-05-21] MEDS: ALBUTEROL NEBULIZED 2.5 MG/3 ML INHALATION SCH (20:28)
[2024-05-21] MEDS: HYDROcodone/APAP 10-325MG 1 EACH TAB PO PRN (20:39)
[2024-05-21] MEDS: ASPIRIN 81 MG PO SCH (20:41)
[2024-05-21] MEDS: DOXYCYCLINE 100 MG CAP PO SCH (20:41)
[2024-05-21] MEDS: SENNOSIDES-DOCUSATE SODIUM 1 EACH TAB PO SCH (20:41)
[2024-05-21] MEDS: SODIUM CHLORIDE 0.9% 1,000 ML IV SCH (20:42)
[2024-05-22] MEDS: FAMOTIDINE 20 MG TAB PO SCH (08:31)
[2024-05-22] MEDS: CHOLECALCIFEROL 25 MCG (1000 IU) TABLET PO SCH (08:31)
[2024-05-22] MEDS: DESVENLAFAXINE SUCCINATE 50 MG TAB.ER.24H PO SCH (08:31)
[2024-05-22] MEDS: MULTIVITAMINS, THERA 1 EACH TAB PO SCH (08:31)
[2024-05-22] MEDS: PYRIDOXINE 50 MG TAB PO SCH (08:31)
--- NOTE | 2024-05-22 09:10 | P.DS ---
Providers Attending physician: Darvin Ashley Consults: 05/21/24 15:24 Consult Physician Routine Consulting Provider: Aneudy Barron Consult Reason/Comments: Post op left total hip arthroplasty medical management Do you want consulting provider notified?: Yes Primary care physician: [facility] Course: This is a 49-year-old female patient, with past medical history of severe hip osteoarthritis, who failed nonsurgical conservative management. On 05/21/2024 the patient presented to the [facility] pre-op department for scheduled total hip arthroplasty with Dr. Ashley. The patient tolerated the procedure well. The patient was transferred to the orthopedic floor. The patient had no acute events over night. The patient's pain has been well-controlled. The patient states she has walked to the bathroom 3 times overnight with walker. Patient was examined at bedside this morning. Patient is resting comfortably in bed. No apparent distress. They are awake, alert and able to answer questions. On inspection the left surgical hip dressing was not intact at the proximal end, it was reinforced and now is intact, there is no drainage or strikethrough. The skin surrounding the dressing is free of erythema. There is mild swelling in the operative thigh. Operative femoral nerve function is intact. The operative calf is soft to compression. The patient is able to actively plantarflex and dorsiflex their operative ankle and toes. Patient will work with physical therapy. Plan to discharge home today if passes physical therapy. Plan follow up in two weeks in our office. Please see med rec for a list of accurate medications. Assessment: Postop day 1 status post left total hip arthroplasty for severe left hip osteoarthritis Left hip pain Plan - Discharge Summary Discharge Rx Participant: Yes New Discharge Prescriptions: New Omeprazole 20 mg PO DAILY #30 tab Aspirin 81 mg PO BID #60 tab Sennosides-Docusate Sodium [Senokot-S] 1 tab PO BID PRN #60 tablet PRN Reason: Constipation Ondansetron [Zofran] 4 mg PO Q6HR PRN #30 tab PRN Reason: Nausea HYDROcodone/APAP 5-325MG [Butte 5] 1 - 2 each PO Q6HR PRN #48 tab PRN Reason: Pain No Action Multivitamins, Thera [Multivitamin] 1 tab PO DAILY Cholecalciferol [Vitamin D3] 250 mcg PO DAILY Pyridoxine [Vitamin B-6] 50 mg PO DAILY Ibuprofen [Motrin] 800 mg PO Q8HR PRN #30 tab PRN Reason: Pain Dicyclomine [Bentyl] 10 mg PO TID PRN PRN Reason: cramping Metaxalone [Skelaxin] 800 mg PO Q8H PRN PRN Reason: Muscle Spasm Albuterol Inhaler [Ventolin Hfa Inhaler] 2 inh INHALATION QID Desvenlafaxine Succinate [Pristiq ER] 50 mg PO DAILY Discharge Medication List Multivitamins, Thera [Multivitamin] 1 tab PO DAILY 03/11/16 [History] Cholecalciferol [Vitamin D3] 250 mcg PO DAILY 01/09/17 [History] Pyridoxine [Vitamin B-6] 50 mg PO DAILY 01/28/21 [History] Ibuprofen [Motrin] 800 mg PO Q8HR PRN #30 tab 08/23/22 [Rx] Albuterol Inhaler [Ventolin Hfa Inhaler] 2 inh INHALATION QID 05/14/24 [History] Desvenlafaxine Succinate [Pristiq ER] 50 mg PO DAILY 05/14/24 [History] Dicyclomine [Bentyl] 10 mg PO TID PRN 05/14/24 [History] Metaxalone [Skelaxin] 800 mg PO Q8H PRN 05/14/24 [History] Aspirin 81 mg PO BID #60 tab 05/21/24 [Rx] Omeprazole 20 mg PO DAILY #30 tab 05/21/24 [Rx] Ondansetron [Zofran] 4 mg PO Q6HR PRN #30 tab 05/21/24 [Rx] Sennosides-Docusate Sodium [Senokot-S] 1 tab PO BID PRN #60 tablet 05/21/24 [Rx] HYDROcodone/APAP 5-325MG [Butte 5] 1 - 2 each PO Q6HR PRN #48 tab 05/22/24 [Rx] Follow up Appointment(s)/Referral(s): Darvin Ashley MD [Medical Doctor] - 2 Weeks Activity/Diet/Wound Care/Special Instructions: 1. Weight-bear as tolerated on your operative extremity unless instructed otherwise. Use a walker or other assistive device to ambulate. 2. Leave surgical dressing in place. If your dressing becomes saturated with blood, there is drainage, or the dressing becomes loose please contact the office. 3. It is okay to shower with your surgical dressing, but do not submerge in water (no hot tubs, bath's, swimming etc.) 4. Take your blood clot prevention medication as prescribed (aspirin, Eliquis, Xarelto, and Plavix are commonly prescribed medications for blood clot prevention) 5. While taking [place] or Percocet for pain take a stool softener (Ex: Colace) and drink lots of water. 6. Keep all follow-up appointments as scheduled. You will usually be seen in 1-2 weeks following surgery. 7. Please contact the office with any questions or concerns [phone] Discharge Disposition: HOME WITH HOME HEALTH SERVICES
[2024-05-22 09:11] LABS: Basophils # (A) 0.02 X 10*3/uL (0.00-0.10); Basophils % (A) 0.1 %; Eosinophils # (A) 0 X 10*3/uL (0.04-0.35); Eosinophils % (A) 0 %; HCT 31.7 % (37.2-46.3); HGB 9.9 g/dL (12.0-15.0); Lymphocytes # (A) 0.97 X 10*3/uL (0.90-5.00); Lymphocytes % (A) 6.3 %; MCH 27.7 pg (27.0-32.0); MCHC 31.2 g/dL (32.0-37.0); MCV 88.5 FL (80.0-97.0); Mean Platelet Volume 10.1 FL (9.5-12.2); Monocytes # (A) 0.59 X 10*3/uL (0.20-1.00); Monocytes % (A) 3.8 %; NRBC Per 100 WBC 0 X 10*3/uL (0.00-0.01); Neutrophils # (A) 13.72 X 10*3/uL (1.80-7.70); Neutrophils % (A) 89.3 %; Platelet Count 311 X 10*3/uL (140-440); RBC 3.58 X 10*6/uL (4.10-5.20); RDW 13.6 % (11.5-14.5); WBC 15.38 X 10*3/uL (4.50-10.00)
[2024-05-22] MEDS: HYDROmorphone 0.5 MG/0.5 ML SYRINGE IVP PRN (10:04)
[2024-05-22] MEDS: HYDROmorphone 1 MG/ML 1 ML SYRINGE IVP PRN (12:23)
--- NOTE | 2024-05-22 15:35 | P.CONS ---
History of Present Illness - Reason for Consult Consult date: 05/22/24 Medical management - History of Present Illness History of present illness; patient is 49-year-old lady with past medical h istory significant for lumbar surgery who presented to the hospital for elective left hip total arthroplasty. Patient has been following up outpatient with orthopedic for left hip pain. All conservative measures had failed, discussion was made with patient regarding surgery and she agreed. Patient underwent left total hip arthroplasty on 05/21. Postoperatively internal medicine team were consulted for medical management REVIEW OF SYSTEMS: CONSTITUTIONAL: No fever, no malaise, no fatigue. HEENT: No recent visual problems or hearing problems. Denied any sore throat. CARDIOVASCULAR: No chest pain, orthopnea, PND, no palpitations, no syncope. PULMONARY: No shortness of breath, no cough, no hemoptysis. GASTROINTESTINAL: No diarrhea, no nausea, no vomiting, no abdominal pain. NEUROLOGICAL: No headaches, no weakness, no numbness. HEMATOLOGICAL: Denies any bleeding or petechiae. GENITOURINARY: Denies any burning micturition, frequency, or urgency. MUSCULOSKELETAL/RHEUMATOLOGICAL: As mentioned above ENDOCRINE: Denies any polyuria or polydipsia. The rest of the 14-point review of systems is negative. PHYSICAL EXAMINATION: GENERAL: The patient is alert and oriented x3, not in any acute distress. Well developed, well nourished. HEENT: Pupils are round and equally reacting to light. EOMI. No scleral icterus. No conjunctival pallor. Normocephalic, atraumatic. No pharyngeal erythema. No thyromegaly. CARDIOVASCULAR: S1 and S2 present. No murmurs, rubs, or gallops. PULMONARY: Chest is clear to auscultation, no wheezing or crackles. ABDOMEN: Soft, nontender, nondistended, normoactive bowel sounds. No palpable organomegaly. MUSCULOSKELETAL: Left hip surgical incision seen EXTREMITIES: No cyanosis, clubbing, or pedal edema. NEUROLOGICAL: Gross neurological examination did not reveal any focal deficits. SKIN: No rashes. Assessment and plan Severe left hip osteoarthritis status post left hip total arthroplasty Prior history of lumbar spine fusion Obesity Monitor vital signs Monitor CBC Monitor CMP Continue pain management per orthopedics Continue DVT prophylaxis per orthopedics Resume home meds PT and OT consulted Labs and medication were reviewed.. Continue same treatment. Continue with symptomatic treatment. Resume home medication. Monitor labs and vitals. DVT and GI prophylaxis. Further recommendations as per clinical course of the patient Dictation was produced using [employer] dictation software. please excuse any grammatical, word or spelling errors. Past Medical History Past Medical History: Asthma, GERD/Reflux, Osteoarthritis (OA), Thyroid Disorder Additional Past Medical History / Comment(s): -induced hypertension, hypothyroidism, occ. GERD, asthma triggered by cigarette smoke, has been told she has sleep apnea but needs sleep study History of Any Multi-Drug Resistant Organisms: None Reported Past Surgical History: Adenoidectomy, Section, Tonsillectomy Additional Past Surgical History / Comment(s): sinus surgery, Rt. bunionectomy, colonoscopy, Rt. foot fracture repair w/ hardware 06/14, lumbar laminectomy & fusion 03/23/23 Past Anesthesia/Blood Transfusion Reactions: No Reported Reaction Past Psychological History: Anxiety, Depression Smoking Status: Never smoker Past Alcohol Use History: None Reported Past Drug Use History: None Reported - Past Family History Mother Family Medical History: Cancer Brother(s) Family Medical History: Cancer Additional Family Medical History / Comment(s): lung Medications and Allergies Home Medications Medication Instructions Recorded Confirmed Type Multivitamins, Thera [Multivitamin] 1 tab PO DAILY 03/11/16 05/14/24 History Cholecalciferol [Vitamin D3] 250 mcg PO DAILY 01/09/17 05/14/24 History Pyridoxine [Vitamin B-6] 50 mg PO DAILY 01/28/21 05/14/24 History Ibuprofen [Motrin] 800 mg PO Q8HR PRN #30 tab 08/23/22 05/14/24 Rx Albuterol Inhaler [Ventolin Hfa 2 inh INHALATION QID 05/14/24 05/14/24 History Inhaler] Desvenlafaxine Succinate [Pristiq 50 mg PO DAILY 05/14/24 05/21/24 History ER] Dicyclomine [Bentyl] 10 mg PO TID PRN 05/14/24 05/14/24 History Metaxalone [Skelaxin] 800 mg PO Q8H PRN 05/14/24 05/14/24 History Aspirin 81 mg PO BID #60 tab 05/21/24 Rx Omeprazole 20 mg PO DAILY #30 tab 05/21/24 Rx Ondansetron [Zofran] 4 mg PO Q6HR PRN #30 tab 05/21/24 Rx Sennosides-Docusate Sodium 1 tab PO BID PRN #60 tablet 05/21/24 Rx [Senokot-S] HYDROcodone/APAP 5-325MG [[place] 5] 1 - 2 each PO Q6HR PRN #48 tab 05/22/24 Rx Allergies Allergy/AdvReac Type Severity Reaction Status Date / Time Penicillins AdvReac Rash/Hives Verified 05/21/24 11:48 Sulfa (Sulfonamide AdvReac Rash/Hives Verified 05/21/24 11:48 Antibiotics) Physical Exam Vitals: Vital Signs Temp Pulse Pulse Resp BP Pulse Ox 05/22/24 14:38 98.9 F 78 17 91/56 94 L 05/22/24 12:12 72 05/22/24 12:00 70 05/22/24 09:39 74 05/22/24 09:28 72 97 05/22/24 07:18 97.9 F 82 17 104/62 95 05/22/24 01:23 97.7 F 70 17 124/54 93 L 05/21/24 19:22 97.8 F 80 17 95/60 98 05/21/24 18:40 71 102/68 05/21/24 18:25 68 101/67 96 05/21/24 18:10 73 101/68 95 05/21/24 17:55 68 104/69 95 05/21/24 17:40 72 106/71 96 05/21/24 17:27 81 102/52 98 05/21/24 17:10 71 113/75 95 05/21/24 16:56 72 111/60 98 05/21/24 16:42 99.1 F 68 18 111/71 98 05/21/24 16:40 99.1 F 68 111/71 98 05/21/24 16:33 97.9 F 67 17 111/71 97 05/21/24 16:15 67 16 121/58 97 05/21/24 16:00 65 16 99/53 99 05/21/24 15:45 66 16 102/55 99 Intake and Output 05/22/24 05/22/24 05/22/24 06:59 14:59 22:59 Other: Voiding Method Toilet # Voids 2 1 Results CBC & Chem 7: 05/22/24 02:37 Labs: Abnormal Lab Results - Last 24 Hours (Table) 05/22/24 Range/Units 02:37 WBC 15.38 H (4.50-10.00) X 10*3/uL RBC 3.58 L (4.10-5.20) X 10*6/uL Hgb 9.9 L (12.0-15.0) g/dL Hct 31.7 L (37.2-46.3) % MCHC 31.2 L (32.0-37.0) g/dL Immature Gran # 0.08 H (0.00-0.04) X 10*3/uL Neutrophils # 13.72 H (1.80-7.70) X 10*3/uL Eosinophils # 0 L (0.04-0.35) X 10*3/uL
[2024-05-22 21:24] VITALS: RESP 18
[2024-05-23 08:40] VITALS: BP 117/74; PULSE 81; TEMP 99.2
--- NOTE | 2024-05-23 09:43 | P.PN ---
Subjective Progress Note Date: 05/23/24 events the last 24 hours noted with the patient and nursing. The patient initially wanted to go home yesterday but then required IV Dilaudid and so stayed for pain control. This morning she feels better. She's been up several times in the bathroom and has worked with physical therapy. She says her pre operative groin pain is improved is having thigh discomfort. She is otherwise doing well. Objective - Vital Signs Vital signs: Vital Signs Temp 99.2 F 05/23/24 07:09 Pulse 74 05/23/24 08:14 Resp 18 05/23/24 07:09 BP 117/74 05/23/24 07:09 Pulse Ox 97 05/23/24 07:09 FiO2 Intake & Output 05/22/24 05/23/24 05/23/24 18:59 06:59 18:59 Other: Voiding Method Toilet # Voids 1 3 - Exam patient is resting comfortably in her bed. She is alert and able to answer questions. A focused exam of the left lower cavity was conducted. Her dressing is intact over the hip. There is no drainage or strike through. Her thigh is soft and compressible. Femoral nerve function is intact. She is able to actively plantarflex and dorsiflex her ankle and her toes. - Labs CBC & Chem 7: 05/22/24 02:37 Assessment and Plan Assessment: postoperative day #2 status post left direct anterior total hip arthroplasty BMI 40.7 Prior lumbar spine fusion Plan: continue treatment as outlined yesterday. Weightbearing as tolerated left lower extremity. The surgical dressing in place. The patient's pain is better this morning and she would like to attempt to discharge home later today.
== END 2024-05-23 13:12 | disposition home health service (06) ==
LOC: OR 11:06 → 4SSUR 15:05 → OR 05-23 13:12
PROVIDERS: ATTEND Orthopaedic Surgery
DX: M16.12 Unilateral primary osteoarthritis, left hip (principal); E03.9 Hypothyroidism, unspecified; E66.9 Obesity, unspecified; G47.30 Sleep apnea, unspecified; G89.18 Other acute postprocedural pain; J45.909 Unspecified asthma, uncomplicated; K21.9 Gastro-esophageal reflux disease without esophagitis; Z68.41 Body mass index [BMI] 40.0-44.9, adult; Z79.82 Long term (current) use of aspirin; Z79.899 Other long term (current) drug therapy; Z88.0 Allergy status to penicillin; Z88.1 Allergy status to other antibiotic agents; Z88.2 Allergy status to sulfonamides; Z90.89 Acquired absence of other organs; Z98.1 Arthrodesis status; Z79.890 Hormone replacement therapy
CPT/HCPCS: 94640 ×3; 94760; 97162; 97166; 81025; 64999; 85025; 73501; 27130; C1776; J2250; J1100; J0690 ×2; J2405; J3010; J3490; J1171 ×2; J1885

== ENCOUNTER → 2024-09-04 | Outpatient (CLI) | payer BC ==
[2024-09-04 13:36] VITALS: BP 136/86; PULSE 86; RESP 16; TEMP 98.1
--- NOTE | 2024-09-04 14:05 | P.SLEEP ---
History of Present Illness H&P Date: 09/04/24 This is a pleasant 49-year-old female patient is coming in to be evaluated for sleep apnea. 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 In the past, she used to work for [employer]. 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 The patient has long history of snoring. She snores very loud. During a recent trip with her girlfriends and was sleeping in the same hotel room, the patient was noted to have very loud snoring, and she has been told also to quit breathing during sleep by her friends and her . She typically goes to bed at 11 PM and she gets out of bed at 5:30 AM in the morning. She feels not refreshed and fatigued and tired during the day. Occasionally, she takes naps. Whenever she is driving long distances such as more than [address], the patient gets quite sleepy and she fights to stay awake. She has not been involved in a motor vehicle accident because of feeling drowsy or sleepy. No history of substance abuse. No seizure. No restlessness in lower extremities. No sleepwalking or sleep talking. She is obese and she has maintained a body mass index of 42 over the past 5 years at least. Mostly paralysis. No hallucinations. No cataplexy. She sleeps on her side and she is a mouth breather. She has undergone previous tonsillectomy and adenoidectomy. No reported allergies or symptoms of rhinitis. The patient has an [place] score of 16. Review of Systems Constitutional: Reports daytime sleepiness, Reports fatigue, Reports weakness, Reports weight gain Eyes: denies as per HPI, denies blurred vision, denies bulging eye, denies decreased vision, denies diplopia, denies discharge, denies dry eye, denies irritation, denies itching, denies pain, denies photophobia, denies loss of peripheral vision, denies loss of vision, denies tunnel vision/blind spots Ears: deny: decreased hearing, ear discharge, earache, tinnitus Ears, nose, mouth and throat: Reports as per HPI Breasts: absent: as per HPI, change in shape, gynecomastia, masses, nipple discharge, pain, skin changes, swelling Cardiovascular: Reports as per HPI Respiratory: Reports snoring Gastrointestinal: Reports as per HPI Genitourinary: Reports as per HPI Menstruation: Reports as per HPI Musculoskeletal: Reports as per HPI Musculoskeletal: absent: ankle pain, ankle stiffness, ankle swelling, as per HPI, elbow pain, elbow stiffness, elbow swelling, foot pain, foot stiffness, foot swelling, hand pain, hand stiffness, hand swelling, hip pain, hip stiffness, hip swelling, knee pain, knee stiffness, knee swelling, shoulder pain, shoulder stiffness, shoulder swelling, wrist pain, wrist stiffness, wrist swelling Integumentary: Reports as per HPI Neurological: Reports as per HPI Psychiatric: Reports change in sleep habits, Reports hypersomnia, Reports sleep disturbances Endocrine: Reports as per HPI, Reports fatigue Hematologic/Lymphatic: Reports as per HPI Allergic/Immunologic: Reports as per HPI Past Medical History Past Medical History: Asthma, GERD/Reflux, Osteoarthritis (OA), Thyroid Disorder Additional Past Medical History / Comment(s): -induced hypertension, hypothyroidism, occ. GERD, asthma triggered by cigarette smoke, has been told she has sleep apnea but needs sleep study headaches History of Any Multi-Drug Resistant Organisms: None Reported Past Surgical History: Adenoidectomy, Section, Tonsillectomy Additional Past Surgical History / Comment(s): sinus surgery, Rt. bunionectomy, colonoscopy, Rt. foot fracture repair w/ hardware 06/14, lumbar laminectomy & fusion 03/23/23 Past Anesthesia/Blood Transfusion Reactions: No Reported Reaction Past Psychological History: Anxiety, Depression Smoking Status: Never smoker Past Alcohol Use History: None Reported Past Drug Use History: None Reported - Past Family History Mother Family Medical History: Cancer Brother(s) Family Medical History: Cancer Additional Family Medical History / Comment(s): lung Medications and Allergies Home Medications Medication Instructions Recorded Confirmed Type Multivitamins, Thera [Multivitamin] 1 tab PO DAILY 03/11/16 09/04/24 History Cholecalciferol [Vitamin D3] 250 mcg PO DAILY 01/09/17 05/14/24 History Pyridoxine [Vitamin B-6] 50 mg PO DAILY 01/28/21 05/14/24 History Ibuprofen [Motrin] 800 mg PO Q8HR PRN #30 tab 08/23/22 05/14/24 Rx Albuterol Inhaler [Ventolin Hfa 2 inh INHALATION QID 05/14/24 05/14/24 History Inhaler] Desvenlafaxine Succinate [Pristiq 50 mg PO DAILY 05/14/24 09/04/24 History ER] Dicyclomine [Bentyl] 10 mg PO TID PRN 05/14/24 05/14/24 History Metaxalone [Skelaxin] 800 mg PO Q8H PRN 05/14/24 09/04/24 History Aspirin 81 mg PO BID #60 tab 05/21/24 Rx Omeprazole 20 mg PO DAILY #30 tab 05/21/24 09/04/24 Rx Ondansetron [Zofran] 4 mg PO Q6HR PRN #30 tab 05/21/24 Rx Sennosides-Docusate Sodium 1 tab PO BID PRN #60 tablet 05/21/24 Rx [Senokot-S] HYDROcodone/APAP 5-325MG [[place] 5] 1 - 2 each PO Q6HR PRN #48 tab 05/22/24 Rx valACYclovir HCL [Valacyclovir] 1,000 mg PO DIRECTED PRN 09/04/24 09/04/24 History Allergies Allergy/AdvReac Type Severity Reaction Status Date / Time Penicillins AdvReac Rash/Hives Verified 05/21/24 11:48 Sulfa (Sulfonamide AdvReac Rash/Hives Verified 05/21/24 11:48 Antibiotics) Physical Exam Vitals: Vital Signs Temp Pulse Resp BP Pulse Ox 09/04/24 13:34 98.1 F 86 16 136/86 98 Intake and Output 09/03/24 09/04/24 09/04/24 22:59 06:59 14:59 Other: Weight 116.573 kg The patient appeared well nourished and normally developed. Vital signs as documented. The patient is morbidly obese with a body mass index of 42.1 Head exam is unremarkable. No scleral icterus or corneal arcus noted. Neck is without jugular venous distension, thyromegaly, or carotid bruits. Carotid upstrokes are brisk bilaterally. The patient has a Mallampati class I. She is post tonsillectomy and adenoidectomy. Lungs are clear to auscultation and percussion. Cardiac exam reveals the PMI to be normally sized and situated. Rhythm is regular. First and second heart sounds normal. No murmurs, rubs or gallops. Abdominal exam reveals normal bowel sounds, no masses, no organomegaly and no aortic enlargement. Organs cannot be accurately palpated because of her morbid obesity. Extremities are nonedematous and both femoral and pedal pulses are normal. Examination of the skin revealed no evidence of significant rashes, suspicious appearing nevi or other concerning lesions. Neurologically, the patient is awake and alert and the patient does not have any focal neurological deficit. Cranial nerves are essentially intact. Assessment and Plan Plan: Chronic hypersomnia, [place] score of 16. High likelihood for obstructive sleep apnea specially with a history of snoring and witnessed apneas. Morbid obesity with a BMI of 42.1 Chronic fatigue/sleepiness secondary to above Depression, treated and the patient is currently on desvenlafaxine Chronic back pain and the patient has undergone previous laminectomy and fusion involving the lumbar spine. She has also undergone a left hip replacement and she is currently taking muscle relaxants Osteoarthritis Mild intermittent bronchial asthma, not receiving any treatment Acid reflux, currently inactive and stable Plan Increase suspicion for obstructive sleep apnea. Will do a screening polysomnography and make further recommendations accordingly. The patient showed interest in CPAP therapy if diagnosis of sleep apnea is confirmed. Avoid driving specially when feeling drowsy or sleepy, pending further workup regarding obstructive sleep apnea Encourage weight loss Optimize sleep hygiene measures Maintain regular sleep schedule and extend sleeping hours to an average of 7 hours per night No major comorbidities. No cardiovascular disease Will continue to follow. Time with Patient: Greater than 30 Sleep Note - Sleep Data ESS Total: 16 - Sleep Note Sleep Note: Temperature: 98.1 F Pulse Rate: 86 Respiratory Rate: 16 Blood Pressure: 136/86 SpO2: 98 Height: 5 ft 5.5 in Weight: 116.573 kg BMI: Neck Circumference: 15
== END ==
LOC: 3 N SLEEP 13:08
PROVIDERS: ATTEND Internal Medicine Critical Care Medicine
DX: G47.10 Hypersomnia, unspecified (principal); M54.50 Low back pain, unspecified; G89.29 Other chronic pain; M19.90 Unspecified osteoarthritis, unspecified site; J45.909 Unspecified asthma, uncomplicated; K21.9 Gastro-esophageal reflux disease without esophagitis; E66.01 Morbid (severe) obesity due to excess calories; F32.A Depression, unspecified; Z68.41 Body mass index [BMI] 40.0-44.9, adult; Z88.0 Allergy status to penicillin; Z88.2 Allergy status to sulfonamides; Z96.642 Presence of left artificial hip joint; Z79.899 Other long term (current) drug therapy; Z98.1 Arthrodesis status
CPT/HCPCS: 99211

== ENCOUNTER 2024-12-13 19:30 | Outpatient (CLI) | payer BC ==
--- NOTE | 2024-12-31 22:35 | P.PCN ---
Date of Procedure: 12/13/24 Operative Findings: CPAP titration report Date of service is 12/13/2024 History This is a pleasant 49-year-old female patient is coming in to be evaluated for sleep apnea. 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 In the past, she used to work for [employer]. 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 The patient has long history of snoring. She snores very loud. During a recent trip with her girlfriends and was sleeping in the same hotel room, the patient was noted to have very loud snoring, and she has been told also to quit breathing during sleep by her friends and her . She typically goes to bed at 11 PM and she gets out of bed at 5:30 AM in the morning. She feels not refreshed and fatigued and tired during the day. Occasionally, she takes naps. Whenever she is driving long distances such as more than [address], the patient gets quite sleepy and she fights to stay awake. She has not been involved in a motor vehicle accident because of feeling drowsy or sleepy. No history of substance abuse. No seizure. No restlessness in lower extremities. No sleepwalking or sleep talking. She is obese and she has maintained a body mass index of 42 over the past 5 years at least. No sleep paralysis no hallucinations. No cataplexy. She sleeps on her side and she is a mouth breather. She has undergone previous tonsillectomy and adenoidectomy. No reported allergies or symptoms of rhinitis. The patient has an [place] score of 16. The patient underwent a screening polysomnography completed on 10/08/2024 and the patient was found to have obstructive sleep apnea, moderate in severity with an AHI of 26.9, worse during REM sleep. Based on that, the patient is coming in to undergo a CPAP titration study. Technical description The patient was studied using a standard complex polysomnography protocol that included recording of the Lead II EKG, Central, occipital and frontal EEG, right and left outer canthus EOG, submental EMG, right and left anterior tibialis EMG, respiratory airflow by thermocouple and or pressure/flow transducer, respiratory efforts by abdominal and thoracic PVDF belts, oxygen saturation by cable oximetry. Position by observation synchronized the PSG. Equipment used: [employer]. Stepwise CPAP titration was done to eliminate all obstructive respiratory events. Pertinent physical findings Height is 5 feet and 5 inches and weight is 257 pounds Sleep architecture The total recording duration was 354.5 minutes. The total sleep time was 303.5 minutes. The overall sleep efficiency was 85.6%. Latency to sleep onset was 12 minutes. Latency to REM sleep was 117 minutes. The wake after sleep onset time was 39 minutes. The sleep architecture was characterized by 19.8% REM sleep, 9.1% stage I sleep, 74.8% stage II sleep and 0% stage III sleep. The total arousal index was 10.7 CPAP titration summary The patient was started on CPAP therapy initially at a pressure of 5 cm of water pressure was gradually increased by increments of 1 cm of water to reach a maximum CPAP pressure of 15 cm of water. Subsequently, the patient was also given trial of BiPAP utilizing pressures of 17/13, 18/14, and 19/15 cm of water. Careful review of the CPAP titration was done taking 80 pounds the patient sleep stage and body position. The patient was studied essentially in a nonsupine body position. The patient was started in REM and non-REM sleep. The patient continued to have obstructive hypopneas at the very CPAP and BiPAP pressures used. Based on my evaluation, the CPAP therapy was more effective in eliminating obstructive respiratory events compared to BiPAP therapy. The patient managed to maintain an oxygen saturation above 90% while on treatment. Cardiac summary The cardiac rhythm was sinus and the patient had an average heart rate of 71 with a minimum heart rate of 65 and a maximum heart rate of 76 Limb movement summary There was a total of 69 periodic limb movement activity. There was also 10 periodic limb movement activity with arousals with an index of 2.0 Arousal events Patient had a total of 54 arousals with an arousal index of 10.7. Respiratory arousal index was 3.4 Assessment Obstructive sleep apnea, moderately severe with an AHI of 26.9, worse during REM sleep with an AHI of 70 during REM. The patient underwent a CPAP/BiPAP therapy, results of discussed above and the patient will be started on CPAP therapy Nocturnal oxygen desaturation with a minimum pulse ox of 63%, occurring during REM, improved with CPAP therapy Chronic hypersomnia, [place] score of 16. Morbid obesity with a BMI of 42.1 Chronic fatigue/sleepiness secondary to above Depression, treated and the patient is currently on desvenlafaxine Chronic back pain and the patient has undergone previous laminectomy and fusion involving the lumbar spine. She has also undergone a left hip replacement and she is currently taking muscle relaxants Osteoarthritis Mild intermittent bronchial asthma, not receiving any treatment Acid reflux, currently inactive and stable Plan Will start the patient on CPAP therapy. The patient will be offered an APAP machine and starting pressures of 5/15 cm of water. The patient will be offered a AirFit F30 a small size fullface mask. Avoid driving specially when feeling drowsy or sleepy, pending further workup regarding obstructive sleep apnea Encourage weight loss Optimize sleep hygiene measures Maintain regular sleep schedule and extend sleeping hours to an average of 7 hours per night No major comorbidities. No cardiovascular disease The patient will see back in the office in 30 to 90 days to assess clinical response and compliancy.
== END 2024-12-14 05:45 | disposition home or self-care (01) ==
LOC: 3 N SLEEP 19:30
PROVIDERS: ATTEND Internal Medicine Critical Care Medicine
CPT/HCPCS: 95811